=== PATIENT | female | born 1980 | race Caucasian/White ===

== ENCOUNTER 2016-09-03 06:08 | Day surgery (SDC) | payer OTHER ==
[2016-09-03] MEDS ORDERED: Lactated Ringers 1,000 ML IV SCH (06:30)
[2016-09-03] MEDS ORDERED: DIPRIVAN 200 MG/20 ML IV ONE (08:00)
[2016-09-03] MEDS ORDERED: SUBLIMAZE 100 MCG/2 ML IV ONE (08:00)
[2016-09-03] MEDS ORDERED: Versed 2 MG/2 ML Injection IV ONE (08:00)
--- NOTE | 2016-09-03 09:10 | OP ---
SURGERY DATE: 09/03/16 SURGERY TIME: 704 PREOPERATIVE DIAGNOSIS: 1. ABDOMINAL PAIN. 2. RECTAL BLEEDING. POSTOPERATIVE DIAGNOSIS: 1. NORMAL COLON. PROCEDURE: 1. Colonoscopy. SURGEON: Dr. Vega Arrington. ANESTHESIA: MAC by Fercho Campos CRNA. SPECIMENS: None. ESTIMATED BLOOD LOSS: None. DESCRIPTION OF PROCEDURE: After informed written consent was obtained, the patient was taken to the endoscopy suite. She underwent monitored anesthesia and a digital rectal exam showed normal sphincter tone and no internal lesions. The scope was inserted in the rectum and sequentially the entire colonic mucosa was traversed. The level of the cecum was reached and verified with direct visualization of the ileocecal valve. Upon withdrawal, careful mucosal inspection revealed no obvious abnormalities. There was a fair amount of liquid stool present throughout the entire length of the colon, but overall, prep was fair. Prior to withdrawal, retroflexion was performed and was within normal limits. The patient had minimal internal hemorrhoids, but no active bleeding or other abnormalities. The scope was removed and the patient was transferred to the recovery room in excellent condition.
[2016-09-03 09:19] VITALS: BP 123/64; PULSE 67; O2SAT 99
== END 2016-09-03 08:50 | disposition home or self-care (01) ==
LOC: SDC 06:08
PROVIDERS: ATTEND Family Medicine
PROC: 0DJD8ZZ Inspection of Lower Intestinal Tract, Via Natural or Artificial Opening Endoscopic (ICD-10-PCS; principal; 2016-09-03)
DX: K62.5 Hemorrhage of anus and rectum (principal)
CPT/HCPCS: 00810; J2250; J2704; J3010

== ENCOUNTER 2018-06-19 15:04 | Emergency (ER) | payer OTHER ==
[2018-06-19] MEDS ORDERED: TORAdol 30 mg Injection IM ONE (15:45)
--- NOTE | 2018-06-19 15:51 | ERPHSYRPT ---
- History of Present Illness Time Seen by Provider: 06/19/18 15:47 Source: patient Exam Limitations: no limitations Physician History: Kelly is a 37-year-old white female who states she does not really have a significant past medical history other than chronic shoulder pain for the last several months. She states that she was walking today and felt a pop in her left shoulder she is complaining of pain in the anterior ribs. Her left shoulder worse with movement. Patient has had chronic shoulder pain for the past several months she has had x- rays approximately 2 months ago which showed been negative and she is receiving physical therapy. Past medical history the left shoulder pain.,migraines, asthma, high blood pressure, GERD, anxiety, depression. Past surgical history includes uterine ablation. Social history patient denies tobacco alcohol or illicit drug use Timing/Duration: today Severity: moderate Associated Symptoms: No nausea, No vomiting, No abdominal pain, No shortness of breath, No heartburn, No diaphoresis, No cough, No chills, No chest pain, No fever, No headaches, No loss of appetite, No malaise, No rash, No syncope, No seizure, No weakness Allergies/Adverse Reactions: amoxicillin [From Augmentin] Adverse Reaction (Verified 09/03/16 06:27) clavulanic acid [From Augmentin] Adverse Reaction (Verified 09/03/16 06:27) Home Medications: Hydrochlorothiazide 25 mg [hydroDIURIL 25 MG] 25 mg PO DAILY 01/24/13 [ History] Loratadine 10 mg [Claritin 10 mg] 10 mg PO DAILY 01/24/13 [History] Omeprazole 20 MG [Prilosec 20 mg] 20 mg PO DAILY 01/24/13 [History] Albuterol Common Canister [Proventil Common Canister] 1 puff IH Q4H PRN PRN 09/01/16 [History] Diclofenac Sodium 1 tab PO DAILY 09/01/16 [History] Paroxetine HCl [Paxil] 1 tab PO DAILY 09/01/16 [History] Potassium Chloride 10 Meq Tab* [Klor Con 10 MEQ] 1 tab PO DAILY 09/01/16 [ History] Topiramate [Topamax] 1 tab PO BID 09/01/16 [History] Hx Influenza Vaccination/Date Given: No Hx Pneumococcal Vaccination/Date Given: No - Review of Systems Constitutional: No Fever, No Chills Eyes: No Symptoms Ears, Nose, & Throat: No Symptoms Respiratory: No Cough, No Dyspnea Cardiac: No Chest Pain, No Edema, No Syncope Abdominal/Gastrointestinal: No Abdominal Pain, No Nausea, No Vomiting, No Diarrhea Genitourinary Symptoms: No Dysuria Musculoskeletal: Joint Pain (left shoulder pain) Skin: No Rash Neurological: No Dizziness, No Focal Weakness, No Sensory Changes Psychological: No Symptoms Endocrine: No Symptoms All Other Systems: Reviewed and Negative - Past Medical History Pertinent Past Medical History: Yes Neurological History: Migraines ENT History: No Pertinent History Cardiac History: Hypertension Respiratory History: Asthma Endocrine Medical History: No Pertinent History Musculoskeletal History: No Pertinent History GI Medical History: GERD History: No Pertinent History Psycho-Social History: Anxiety, Depression Female Reproductive Disorders: Abnormal Uterine Bleeding - Past Surgical History Past Surgical History: Yes Neuro Surgical History: No Pertinent History Cardiac: No Pertinent History Respiratory: No Pertinent History Gastrointestinal: Cholecystectomy, Other Genitourinary: No Pertinent History Musculoskeletal: No Pertinent History Female Surgical History: Dilation & Curettage, Section, Tubal Ligation Other Surgical History: 2 c-sections and scar tissue removal. endometrial ablation/ d&c, colonoscopy - Social History Smoking Status: Never smoker Exposure to second hand smoke: No Drug Use: none - Female History Hx Now: No - Nursing Vital Signs Nursing Vital Signs: Initial Vital Signs Temperature 98.0 F 06/19/18 15:39 Pulse Rate 100 H 06/19/18 15:39 Respiratory Rate 18 06/19/18 15:39 Blood Pressure 132/85 06/19/18 15:39 O2 Sat by Pulse Oximetry 100 06/19/18 15:39 Pain Scale Pain Intensity 7 - Physical Exam General Appearance: mild distress Eye Exam: PERRL/EOMI, eyes nml inspection Ears, Nose, Throat Exam: normal ENT inspection, TMs normal, pharynx normal, moist mucous membranes Neck Exam: normal inspection, non-tender, supple, full range of motion Respiratory Exam: normal breath sounds, lungs clear, No respiratory distress Cardiovascular Exam: regular rate/rhythm Gastrointestinal/Abdomen Exam: soft, normal bowel sounds, No tenderness, No mass Back Exam: normal inspection, normal range of motion, No CVA tenderness, No vertebral tenderness Extremity Exam: other (pain with palpation and movement left shoulder) Neurologic Exam: alert, oriented x 3, 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, 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, normal mood/affect, nml cerebellar function, nml station & gait, sensation nml, No motor deficits Skin Exam: normal color, warm, dry, No rash Lymphatic Exam: No adenopathy SpO2 Interpretation: normal (100%) - Course Nursing assessment & vital signs reviewed: Yes - Radiology Exams Left Shoulder X-ray Interpretation: Interpreted by me, Negative, No Fracture, No Subluxation Ordered Tests: Active Orders 24 hr Category Date Time Status SHOULDER Stat Exams 06/19/18 16:04 Taken Medication Summary Discontinued Medications Generic Name Dose Route Start Last Admin Trade Name Freq PRN Reason Stop Dose Admin Ketorolac Tromethamine 60 mg 06/19/18 15:45 Toradol 30 Mg Injection IM 06/19/18 15:46 STAT ONE - Progress Progress: improved Progress Note: 06/19/18 15:57 37-year-old white female with history of migraines, asthma, high blood pressure , GERD, anxiety, depression, Arrives with complaint of pain in her left shoulder for 2 hours she states she was walking around her house when she felt a pop in her shoulder. She is having pain in the left shoulder with movement and palpation. Patient has been seen by her family . secondary to this patient had had a normal x-ray of her left shoulder 2 months ago she is receiving physical therapy secondary to this she is on diclofenac. Will go ahead and get an x-ray of the left shoulder patient has done diclofenac but will give her a one-time shot of Toradol. Will review films 06/19/18 16:07 x-ray left shoulder (my read) no fractures no dislocation Patient is able to flex her left shoulder and abduction left shoulder to 90 degrees, will go ahead and place a sling on the patient's left arm write for a small amount of norco for pain. Patient to follow-up with her family doctor , and continue her other home medications. - Departure Time of Disposition: 16:09 Departure Disposition: Home Clinical Impression: Left shoulder pain Qualifiers: Chronicity: unspecified Qualified Code(s): M25.512 - Pain in left shoulder Condition: Fair Critical Care Time: No Referrals: [facility] REA MD [Primary Care Provider] - Additional Instructions: Return home. Ice to left shoulder 24-48 hours. Use sling 48-72 hours . Follow-up with your family doctor. [facility] as prescribed. Home medications as prescribed by your family doctor. Return for acute distress or for severe symptoms. Prescriptions: Hydrocodone/Acetaminophen [[facility] 5-325 Tablet] 1 tablet PO Q4-6HPRN PRN #10 tablet MDD 6 tablets PRN Reason: Pain
[2018-06-19 15:52] VITALS: BP 132/85; PULSE 100; O2SAT 100
[2018-06-19] MEDS ORDERED: TORAdol 30 mg Injection ONE (16:11)
--- NOTE | 2018-06-19 20:25 | XRAY ---
Indication: Left shoulder pain and popping. Comparison: April 22, 2018. 3 views of the left shoulder obtained. Again no bony, articular, or soft tissue abnormalities.
== END 2018-06-19 16:30 | disposition home or self-care (01) ==
LOC: ED 15:04
DX: M25.512 Pain in left shoulder (principal); J45.909 Unspecified asthma, uncomplicated; I10 Essential (primary) hypertension; K21.9 Gastro-esophageal reflux disease without esophagitis; F41.9 Anxiety disorder, unspecified; N93.9 Abnormal uterine and vaginal bleeding, unspecified
CPT/HCPCS: 73030; 96372; 99284; J1885

== ENCOUNTER 2018-12-10 22:21 | Emergency (ER) | payer BC, OTHER ==
[2018-12-10] MEDS ORDERED: BENADRYL 50 MG/ML IV ONE (22:46)
[2018-12-10] MEDS ORDERED: Sodium Chloride 0.9% 1000 ML 1,000 ML IV STA (22:46)
--- NOTE | 2018-12-10 22:46 | ERPHSYRPT ---
- History of Present Illness Time Seen by Provider: 12/10/18 22:41 Source: patient, family Exam Limitations: no limitations Physician History: pt is 38 year old with onset today of muscle twitching, and brief slurred speech - resolved byt twitching persists- no neuro deficits, no trauma or blood thinners or prior neuro problems - no change in meds does take paxil - denies OTC meds; Timing/Duration: today Severity: moderate Character of Deficits: none Deficits: no difficulties Baseline/Normal Cognition: alert oriented x 3 Current Cognition: alert oriented x 3 Baseline Gait: walks w/o assistance Associated Symptoms: muscle spasms, slurred speech Allergies/Adverse Reactions: amoxicillin [From Augmentin] Adverse Reaction (Verified 12/10/18 22:45) clavulanic acid [From Augmentin] Adverse Reaction (Verified 12/10/18 22:45) Home Medications: Hydrochlorothiazide 25 mg [hydroDIURIL 25 MG] 25 mg PO DAILY 01/24/13 [ History] Loratadine 10 mg [Claritin 10 mg] 10 mg PO DAILY 01/24/13 [History] Omeprazole 20 MG [Prilosec 20 mg] 20 mg PO DAILY 01/24/13 [History] Albuterol Common Canister [Proventil Common Canister] 1 puff IH Q4H PRN PRN 09/01/16 [History] Paroxetine HCl [Paxil] 1 tab PO DAILY 09/01/16 [History] Potassium Chloride 10 Meq Tab* [Klor Con 10 MEQ] 1 tab PO DAILY 09/01/16 [ History] Topiramate [Topamax] 1 tab PO BID 09/01/16 [History] Hx Influenza Vaccination/Date Given: No Hx Pneumococcal Vaccination/Date Given: No - Review of Systems Constitutional: No Fever, No Chills Eyes: No Symptoms Ears, Nose, & Throat: No Symptoms Respiratory: No Cough, No Dyspnea Cardiac: No Chest Pain, No Edema, No Syncope Abdominal/Gastrointestinal: No Abdominal Pain, No Nausea, No Vomiting, No Diarrhea Genitourinary Symptoms: No Dysuria Musculoskeletal: No Back Pain, No Neck Pain Skin: No Rash Neurological: Tremors, No Dizziness, No Focal Weakness, No Sensory Changes Psychological: No Symptoms Endocrine: No Symptoms All Other Systems: Reviewed and Negative - Past Medical History Pertinent Past Medical History: Yes Neurological History: Migraines ENT History: No Pertinent History Cardiac History: Hypertension Respiratory History: Asthma Endocrine Medical History: No Pertinent History Musculoskeletal History: No Pertinent History GI Medical History: GERD History: No Pertinent History Psycho-Social History: Anxiety, Depression Female Reproductive Disorders: Abnormal Uterine Bleeding - Past Surgical History Past Surgical History: Yes Neuro Surgical History: No Pertinent History Cardiac: No Pertinent History Respiratory: No Pertinent History Gastrointestinal: Cholecystectomy, Other Genitourinary: No Pertinent History Musculoskeletal: No Pertinent History Female Surgical History: Dilation & Curettage, Section, Tubal Ligation Other Surgical History: 2 c-sections and scar tissue removal. endometrial ablation/ d&c, colonoscopy - Social History Smoking Status: Never smoker Exposure to second hand smoke: No Drug Use: none Patient Lives Alone: No - Nursing Vital Signs Nursing Vital Signs: Initial Vital Signs Temperature 97.7 F 12/10/18 22:36 Pulse Rate 71 12/10/18 22:36 Respiratory Rate 18 12/10/18 22:36 Blood Pressure 123/66 12/10/18 22:36 O2 Sat by Pulse Oximetry 97 12/10/18 22:36 Pain Scale Pain Intensity 0 - [place] Coma Scale Best Eye Response ([place]): (4) open spontaneously Best Verbal Response ([place]): (5) oriented Best Motor Response ([place]): (6) obeys commands Margarita Total: 15 - Physical Exam General Appearance: no apparent distress, alert Eye Exam: bilateral eye: normal inspection, PERRL, EOMI Ears, Nose, Throat Exam: normal ENT inspection, pharynx normal, moist mucous membranes Neck Exam: normal inspection, non-tender, supple, other (pain with motion) Respiratory: normal breath sounds, lungs clear, airway intact, No respiratory distress Cardiovascular: regular rate/rhythm, No edema Gastrointestinal: soft, No tenderness, No distention Back Exam: normal inspection Extremity Exam: normal inspection, No pedal edema Peripheral Pulses: carotid (R): 2+, carotid (L): 2+, femoral (R): 2+, femoral (L ): 2+, dorsalis-pedis (R): 2+, dorsalis-pedis (L): 2+ Mental Status: alert, oriented x 3, 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 Exam: normal hearing, normal speech, PERRL, tongue midline Coordination/Gait: normal finger to nose, normal gait, normal cerebellar function Motor/Sensory: no motor deficit, no sensory deficit, no pronator drift DTR: bicep (R): 2+, bicep (L): 2+, tricep (R): 2+, tricep (L): 2+, knee (R): 2+ , knee (L): 2+, ankle (R): 2+, ankle (L): 2+ Skin Exam: normal color, warm, dry, No rash - Course Nursing assessment & vital signs reviewed: Yes EKG Interpreted by Me: Sinus Rhythm, NORMAL AXIS, NORMAL INTERVALS, NORMAL QRS, Non-specific ST Changes - CT Exams Head CT Interpretation: Tele-radiologist Report, No/Intracranial Hemorrhag Cervical Spine CT Interpretation: Tele-radiologist Report, No Fracture Ordered Tests: Active Orders 24 hr Category Date Time Status Clean Catch Urine Specimen STAT Care 12/10/18 22:46 Active EKG-ER Only STAT Care 12/10/18 22:46 Active IV Insertion STAT Care 12/10/18 22:46 Active CERVICAL SPINE WO CONTRAST [CT] Stat Exams 12/10/18 22:49 Taken HEAD WITHOUT CONTRAST [CT] Stat Exams 12/10/18 22:49 Taken CBC W DIFF Stat Lab 12/10/18 22:46 Completed CK-Creatinine Phosphokinase Stat Lab 12/10/18 23:09 Completed CMP Stat Lab 12/10/18 23:09 Completed HCG QUALITATIVE,SERUM Stat Lab 12/10/18 23:11 Completed Lactic Acid Stat Lab 12/10/18 22:46 Completed MAGNESIUM Stat Lab 12/10/18 23:09 Completed T4 (Thyroxine) Stat Lab 12/10/18 23:09 Completed TSH, 3RD Generation Stat Lab 12/10/18 23:09 Completed UA W/RFX UR CULTURE Stat Lab 12/10/18 23:11 Completed Medication Summary Generic Name Dose Route Start Last Admin Trade Name Freq PRN Reason Stop Dose Admin Magnesium Sulfate/Dextrose 100 mls @ 100 mls/hr 12/11/18 00:15 12/11/18 00:17 Magnesium 1 Gm / 100 Ml D5w IV 12/11/18 02:14 100 mls/hr Q1H FERNANDO Administration Discontinued Medications Generic Name Dose Route Start Last Admin Trade Name Freq PRN Reason Stop Dose Admin Diphenhydramine HCl 50 mg 12/10/18 22:46 12/10/18 23:16 Benadryl 50 Mg/Ml IV 12/10/18 22:47 50 mg STAT ONE Administration Diphenhydramine HCl Confirm 12/10/18 22:59 Benadryl 50 Mg/Ml Administered 12/10/18 23:00 Dose 50 mg .ROUTE .STK-MED ONE Sodium Chloride 1,000 mls @ 999 mls/hr 12/10/18 22:46 12/10/18 23:16 Sodium Chloride 0.9% 1000 Ml IV 12/10/18 23:46 999 mls/hr .Q1H1M STA Administration Sodium Chloride Confirm 12/10/18 23:00 Sodium Chloride 0.9% 1000 Ml Administered 12/10/18 23:01 Dose 1,000 mls @ ud .ROUTE .STK-MED ONE Lorazepam 1 mg 12/10/18 23:02 12/10/18 23:22 Ativan 1 Mg PO 12/10/18 23:03 1 mg STAT ONE Administration Lorazepam Confirm 12/10/18 23:22 Ativan 1 Mg Administered 12/10/18 23:23 Dose 1 mg .ROUTE .STK-MED ONE Tizanidine HCl 4 mg 12/11/18 00:07 Zanaflex 4 Mg PO 12/11/18 00:08 STAT ONE Lab/Rad Data: Laboratory Result Diagrams 12/10/18 22:46 12/10/18 23:09 Laboratory Results 12/10/18 12/10/18 12/10/18 Range/Units 23:11 23:11 23:09 WBC (4.0-10.5) K/mm3 RBC (4.1-5.4) M/mm3 Hgb (12.0-16.0) gm/dl Hct (35-47) % MCV (78-100) fl MCH (26-32) pg MCHC (32-36) g/dl RDW (11.5-14.0) % Plt Count (150-450) K/mm3 MPV (6-9.5) fl Gran % (36.0-66.0) % Eos # (Auto) (0-0.5) Absolute Lymphs (auto) (1.0-4.6) Absolute Monos (auto) (0.0-1.3) Lymphocytes % (24.0-44.0) % Monocytes % (0.0-12.0) % Eosinophils % (0.00-5.0) % Basophils % (0.0-0.4) % Absolute Granulocytes (1.4-6.9) Basophils # (0-0.4) Sodium 137 (137-145) mmol/L Potassium 3.9 (3.5-5.1) mmol/L Chloride 103 (98-107) mmol/L Carbon Dioxide 26 (22-30) mmol/L Anion Gap 11.9 (5-15) MEQ/L BUN 10 (7-17) mg/dL Creatinine 0.65 (0.52-1.04) mg/dL Estimated GFR > 60.0 ML/MIN Glucose 104 (74-106) mg/dL Lactic Acid (0.4-2.0) Calcium 9.6 (8.4-10.2) mg/dL Magnesium 2.2 (1.6-2.3) mg/dL Total Bilirubin 0.20 (0.2-1.3) mg/dL AST 19 (14-36) U/L ALT 28 (0-35) U/L Alkaline Phosphatase 82 (38-126) U/L Creatine Kinase 63 (30-135) U/L Serum Total Protein 7.1 (6.3-8.2) g/dL Albumin 4.0 (3.5-5.0) g/dL Thyroxine (T4) 8.96 (5.53-10.96) ug/dL TSH 3rd Generation 4.270 (0.47-4.68) mIU/L Serum , Qual NEGATIVE (Negative) Urine Color COLORLESS (YELLOW) Urine Appearance CLEAR (CLEAR) Urine pH 8.0 (5-6) Ur Specific [place] 1.004 (1.005-1.025) Urine Protein NEGATIVE (Negative) Urine Ketones NEGATIVE (NEGATIVE) Urine Blood NEGATIVE (0-5) Butch/ul Urine Nitrite NEGATIVE (NEGATIVE) Urine Bilirubin NEGATIVE (NEGATIVE) Urine Urobilinogen NEGATIVE (0-1) mg/dL Ur Leukocyte Esterase NEGATIVE (NEGATIVE) Urine WBC (Auto) NONE (0-5) /HPF Urine RBC (Auto) NONE (0-2) /HPF U Epithel Cells (Auto) NONE (FEW) /HPF Urine Bacteria (Auto) NONE (NEGATIVE) /HPF Urine Culture Reflexed NO (NO) Urine Glucose NEGATIVE (NEGATIVE) mg/dL 12/10/18 12/10/18 Range/Units 22:46 22:46 WBC 12.2 H (4.0-10.5) K/mm3 RBC 4.74 (4.1-5.4) M/mm3 Hgb 13.0 (12.0-16.0) gm/dl Hct 39.2 (35-47) % MCV 82.7 (78-100) fl MCH 27.4 (26-32) pg MCHC 33.2 (32-36) g/dl RDW 14.6 H (11.5-14.0) % Plt Count 329 (150-450) K/mm3 MPV 10.5 H (6-9.5) fl Gran % 49.8 (36.0-66.0) % Eos # (Auto) 0.36 (0-0.5) Absolute Lymphs (auto) 4.68 H (1.0-4.6) Absolute Monos (auto) 1.02 (0.0-1.3) Lymphocytes % 38.4 (24.0-44.0) % Monocytes % 8.4 (0.0-12.0) % Eosinophils % 3.0 (0.00-5.0) % Basophils % 0.4 (0.0-0.4) % Absolute Granulocytes 6.07 (1.4-6.9) Basophils # 0.05 (0-0.4) Sodium (137-145) mmol/L Potassium (3.5-5.1) mmol/L Chloride (98-107) mmol/L Carbon Dioxide (22-30) mmol/L Anion Gap (5-15) MEQ/L BUN (7-17) mg/dL Creatinine (0.52-1.04) mg/dL Estimated GFR ML/MIN Glucose (74-106) mg/dL Lactic Acid 1.2 (0.4-2.0) Calcium (8.4-10.2) mg/dL Magnesium (1.6-2.3) mg/dL Total Bilirubin (0.2-1.3) mg/dL AST (14-36) U/L ALT (0-35) U/L Alkaline Phosphatase (38-126) U/L Creatine Kinase (30-135) U/L Serum Total Protein (6.3-8.2) g/dL Albumin (3.5-5.0) g/dL Thyroxine (T4) (5.53-10.96) ug/dL TSH 3rd Generation (0.47-4.68) mIU/L Serum , Qual (Negative) Urine Color (YELLOW) Urine Appearance (CLEAR) Urine pH (5-6) Ur Specific [place] (1.005-1.025) Urine Protein (Negative) Urine Ketones (NEGATIVE) Urine Blood (0-5) Butch/ul Urine Nitrite (NEGATIVE) Urine Bilirubin (NEGATIVE) Urine Urobilinogen (0-1) mg/dL Ur Leukocyte Esterase (NEGATIVE) Urine WBC (Auto) (0-5) /HPF Urine RBC (Auto) (0-2) /HPF U Epithel Cells (Auto) (FEW) /HPF Urine Bacteria (Auto) (NEGATIVE) /HPF Urine Culture Reflexed (NO) Urine Glucose (NEGATIVE) mg/dL - Progress Progress: improved, re-examined Progress Note: 12/11/18 00:49 twitching has resolved after treatment. pt and family advised to f/u PCP and neuro for definitive workup and to return meantime of symptoms recur. 12/11/18 01:07 Counseled pt/family regarding: diagnosis, need for follow-up, rad results - Departure Departure Disposition: Home Clinical Impression: Involuntary muscle contractions Condition: Good Critical Care Time: No Referrals: [facility] REA MD [Primary Care Provider] - Additional Instructions: involuntary twitching can have many causes and although we have checked for several potential causes , a furhter workup needs to be completed by your Dr,s including possible a neurologist especially if these recur or persist. We have not yet determined a cause adn therefore additional pathology my still be evolving. See your Dr this week for this followup and referral and return meantime if symptoms recur or are concerning. Prescriptions: Tizanidine HCl 4 mg [Zanaflex 4 MG] 4 mg PO Q8H PRN PRN #10 tablet PRN Reason: Muscle Spasms
[2018-12-10] MEDS ORDERED: BENADRYL 50 MG/ML ONE (22:59)
[2018-12-10] MEDS ORDERED: Sodium Chloride 0.9% 1000 ML 1,000 ML ONE (23:00)
[2018-12-10] MEDS ORDERED: Ativan 1 MG PO ONE (23:02)
[2018-12-10 23:07] LABS: BASOPHIL % 0.4 % (0.0-0.4); Basophil (Absolute #) 0.05 (0-0.4); Eosinophil (Absolute #) 0.36 (0-0.5); Granulocyte Absolute (ANC) 6.07 (1.4-6.9); Granulocytes % 49.8 % (36.0-66.0); Hematocrit 39.2 % (35-47); Lymphocyte (Absolute #) 4.68 (1.0-4.6); Lymphocytes % 38.4 % (24.0-44.0); Mean Cell Volume 82.7 fl (78-100); Mean Corpuscular Hemoglobin 27.4 pg (26-32); Mean Corpuscular Hgb Concent. 33.2 g/dl (32-36); Mean Platelet Volume 10.5 fl (6-9.5); Monocyte (Absolute #) 1.02 (0.0-1.3); Monocytes % 8.4 % (0.0-12.0); Platelet Count 329 K/mm3 (150-450); Red Blood Count 4.74 M/mm3 (4.1-5.4); Red Cell Distribution Width 14.6 % (11.5-14.0); White Blood Count 12.2 K/mm3 (4.0-10.5)
[2018-12-10 23:22] LABS: Appearance CLEAR (CLEAR); Bilirubin NEGATIVE (NEGATIVE); Blood NEGATIVE Ery/ul (0-5); Glucose NEGATIVE (NEGATIVE); Ketones NEGATIVE (NEGATIVE); Leukocyte Esterase NEGATIVE (NEGATIVE); Nitrite NEGATIVE (NEGATIVE); Protein,Urine Dip NEGATIVE (Negative); Specific Gravity 1.004 (1.005-1.025); Urobilinogen NEGATIVE mg/dL (0-1)
[2018-12-10] MEDS ORDERED: Ativan 1 MG ONE (23:22)
[2018-12-10 23:48] LABS: ALKALINE PHOSPHATASE 82 U/L (38-126); ANION GAP 11.9 MEQ/L (5-15); BLOOD UREA NITROGEN 10 mg/dL (7-17); CHLORIDE 103 mmol/L (98-107); CK-Creatinine Phosphokinase 63 U/L (30-135); Calcium 9.6 mg/dL (8.4-10.2); Carbon Dioxide 26 mmol/L (22-30); Creatinine 1 0.65 mg/dL (0.52-1.04); Glucose 104 mg/dL (74-106); MAGNESIUM 2.2 mg/dL (1.6-2.3); Potassium 3.9 mmol/L (3.5-5.1); SGOT/AST 19 U/L (14-36); SGPT/ALT 28 U/L (0-35); SODIUM 137 mmol/L (137-145); Total Protein 7.1 g/dL (6.3-8.2)
[2018-12-11] MEDS ORDERED: Zanaflex 4 MG PO ONE (00:07)
[2018-12-11] MEDS ORDERED: Magnesium 1 Gm / 100 Ml D5W*** 200 ML IV ONE (00:15)
[2018-12-11] MEDS: Magnesium 1 Gm / 100 Ml D5W*** 100 ML IV SCH ×2 (00:17→00:54)
[2018-12-11 01:45] VITALS: BP 108/65; PULSE 70; O2SAT 99
--- NOTE | 2018-12-11 09:51 | XRAY ---
Indication: Muscle twitching. Multiple contiguous axial images obtained through the head without contrast. Comparison: May 01, 2015. Again normal appearing brain parenchyma, ventricles, and bony calvarium. Visualized paranasal sinuses and mastoid air cells are clear. Impression: Stable normal CT head without contrast exam. Comment: Preliminary interpretation was made by [facility]. No discrepancy. CTDI 60.53
--- NOTE | 2018-12-11 09:51 | XRAY ---
Indication: Muscle twitching. Multiple contiguous axial images obtained through the cervical spine. Sagittal and coronal reformatted images obtained. Comparison: None. Axial images negative for acute fracture, suspicious bony lesions, or spinal canal stenosis. Sagittal and coronal reformatted images demonstrates mild cervical lordotic reversal, positional versus paraspinal spasm. Vertebral body height and disc spaces maintained. No acute compression fracture, subluxation, or jumped facet. Normal-appearing craniocervical junction. Visualized noncontrasted soft tissues including lung apices unremarkable. Impression: Cervical lordotic reversal, positional versus paraspinal spasm. Remaining CT cervical spine is negative. Comment: Preliminary interpretation was made by [facility]. No discrepancy. CTDI 27.63
== END 2018-12-11 01:45 | disposition home or self-care (01) ==
LOC: ED 22:21
DX: M62.40 Contracture of muscle, unspecified site (principal); R25.3 Fasciculation; Z79.899 Other long term (current) drug therapy; I10 Essential (primary) hypertension; J45.909 Unspecified asthma, uncomplicated; K21.9 Gastro-esophageal reflux disease without esophagitis; F41.8 Other specified anxiety disorders
CPT/HCPCS: 36000; 36415; 70450; 72125; 80053; 81001; 81025; 82550; 83605; 83735; 84436; 84443; 85025; 93005; 96360; 96361; 96365; 96374; 99284; J1200; J3475; A9270-GY